=== PATIENT | female | born 1990 | race Caucasian/White ===

== ENCOUNTER 2018-10-22 09:21 | Inpatient (IN) | payer MEDICAID ==
[~2018-10-22 09:21] MED LIST: EPHEDrine SULFATE 50 MG/5 ML SYG
[2018-10-22] MEDS: LACTATED RINGER'S 1,000 ML IV ×2 (10:20→16:24)
[2018-10-22] MEDS ORDERED: AMPICILLIN 2 GM/NS (PMX) 100 ML (10:26)
[2018-10-22] MEDS ORDERED: CEFAZOLIN 2 GM/50 ML (PMX) 50 ML IVPB (10:30)
[2018-10-22] MEDS ORDERED: MISOPROSTOL 200 MCG TAB PR ×2 (10:30→16:30)
[2018-10-22] MEDS ORDERED: OXYTOCIN 30 UNITS/LR 500 ML IV ×3 (10:30→16:30)
[2018-10-22] MEDS ORDERED: METHYLERGONOVINE 0.2 MG INJ IM ×2 (10:30→16:30)
[2018-10-22] MEDS ORDERED: CARBOPROST 250 MCG INJ IM ×2 (10:30→16:30)
[2018-10-22 10:36] LABS: ADD MAN DIFF? NO
[2018-10-22 10:53] LABS: BASOPHILS % 0.3 % (0.0-2.0); EOSINOPHILS # 0.1 10^3/ul (0.0-0.5); EOSINOPHILS % 0.5 % (0.0-7.0); HEMATOCRIT 34.7 % (37.0-47.0); HEMOGLOBIN 11.4 g/dl (12.0-16.0); LYMPHOCYTES # 1.5 10^3/ul (0.8-2.9); LYMPHOCYTES % 14.8 % (15.0-51.0); MEAN CORPUSCULAR HEMOGLOBIN 27.1 pg (29.0-33.0); MEAN CORPUSCULAR HGB CONC 32.9 g/dl (32.0-37.0); MEAN CORPUSCULAR VOLUME 82.6 fl (82.0-101.0); MEAN PLATELET VOLUME 10.5 fl (7.4-10.4); MONOCYTE # 0.7 10^3/ul (0.3-0.9); MONOCYTES % 7.2 % (0.0-11.0); NEUTROPHIL # 7.8 10^3/ul (1.6-7.5); NEUTROPHILS % 76.4 % (39.0-77.0); PLATELET COUNT 234 10^3/UL (140-415); RED CELL DISTRIBUTION WIDTH 14.2 % (11.5-14.5)
[2018-10-22 10:53] LABS: WHITE BLOOD COUNT 10.2 10^3/ul (4.8-10.8)
[2018-10-22] MEDS: CITRIC ACID/NA CITRATE 30 ML CUP PO (11:02)
[2018-10-22 11:03] LABS: INR 0.91; PROTIME 12.4 Sec (11.9-14.9)
[2018-10-22 11:04] LABS: PARTIAL THROMBOPLASTIN TIME 28.5 Sec (23.0-35.0)
[2018-10-22] MEDS ORDERED: morphine SULFATE/PF (10 MG/10 ML) INJ (11:15)
[2018-10-22] MEDS: AMPICILLIN 2 GM/NS (PMX) 100 ML IVPB (11:23)
[2018-10-22] MEDS ORDERED: METOCLOPRAMIDE 10 MG INJ (11:25)
[2018-10-22] MEDS ORDERED: ONDANSETRON 4 MG INJ (11:25)
[2018-10-22] MEDS ORDERED: KETOROLAC 30 MG INJ (11:26)
[2018-10-22] MEDS ORDERED: ONDANSETRON 4 MG INJ IV ×2 (13:00→17:30)
[2018-10-22] MEDS ORDERED: NALOXONE (0.4 MG/ML) INJ IV ×2 (13:00→17:30)
[2018-10-22] MEDS ORDERED: LORAZEPAM 2 MG INJ IV (13:00)
[2018-10-22] MEDS ORDERED: morphine 2 MG INJ IV ×6 (13:00→17:30)
[2018-10-22] MEDS ORDERED: morphine (1 MG/ML) 10ML SYRINGE IV ×3 (13:00)
[2018-10-22] MEDS ORDERED: DIPHENHYDRAMINE 50 MG INJ IV ×3 (13:00→17:30)
[2018-10-22] MEDS: OXYTOCIN 30 UNITS/LR 500 ML IV (13:15)
[2018-10-22] MEDS: ONDANSETRON 4 MG INJ IV ×2 (15:03→20:06)
[2018-10-22] MEDS: KETOROLAC 30 MG INJ IV (15:04)
[2018-10-22 15:10] LABS: RAPID PLASMA REAGIN NONREACTIVE (NR)
[2018-10-22] MEDS ORDERED: ZOLPIDEM 5 MG TAB PO (16:30)
[2018-10-22] MEDS: IBUPROFEN 600 MG TAB PO (18:00)
[2018-10-22] MEDS: SENNA/DOCUSATE NA (8.6MG/50MG) TAB PO (21:00)
[2018-10-23] MEDS: LACTATED RINGER'S 1,000 ML IV ×2 (00:05→08:23)
[2018-10-23] MEDS: IBUPROFEN 600 MG TAB PO ×4 (06:00→17:44)
[2018-10-23] MEDS: KETOROLAC 30 MG INJ IV (06:48)
[2018-10-23 07:58] LABS: ADD MAN DIFF? NO
[2018-10-23 08:04] LABS: BASOPHILS % 0.2 % (0.0-2.0); EOSINOPHILS % 0.3 % (0.0-7.0); HEMATOCRIT 28.3 % (37.0-47.0); HEMOGLOBIN 9.3 g/dl (12.0-16.0); LYMPHOCYTES # 1.4 10^3/ul (0.8-2.9); MEAN CORPUSCULAR HEMOGLOBIN 27.3 pg (29.0-33.0); MEAN CORPUSCULAR HGB CONC 32.9 g/dl (32.0-37.0); MEAN PLATELET VOLUME 10.2 fl (7.4-10.4); MONOCYTE # 1.1 10^3/ul (0.3-0.9); MONOCYTES % 9.3 % (0.0-11.0); NEUTROPHIL # 8.9 10^3/ul (1.6-7.5); NEUTROPHILS % 77.5 % (39.0-77.0); PLATELET COUNT 193 10^3/UL (140-415); RED BLOOD COUNT 3.41 10^6/ul (4.20-5.40); RED CELL DISTRIBUTION WIDTH 14.4 % (11.5-14.5)
[2018-10-23 08:04] LABS: WHITE BLOOD COUNT 11.4 10^3/ul (4.8-10.8)
[2018-10-23] MEDS: SENNA/DOCUSATE NA (8.6MG/50MG) TAB PO ×2 (13:04→20:15)
[2018-10-23] MEDS: OXYCODONE/ACETAMINOPHEN (5/325) TAB PO ×2 (14:46→20:15)
[2018-10-24] MEDS: IBUPROFEN 600 MG TAB PO ×5 (00:45→23:31)
[2018-10-24] MEDS: SENNA/DOCUSATE NA (8.6MG/50MG) TAB PO ×2 (08:29→20:14)
[2018-10-24] MEDS: OXYCODONE/ACETAMINOPHEN (5/325) TAB PO ×3 (08:30→20:14)
[2018-10-25] MEDS: OXYCODONE/ACETAMINOPHEN (5/325) TAB PO (06:08)
[2018-10-25] MEDS: IBUPROFEN 600 MG TAB PO ×2 (06:08→11:56)
[2018-10-25] MEDS: DIPHTH/TET/ACEL PERTUSS (ADULT) 0.5 ML VIAL IM* (09:08)
[2018-10-25] MEDS: SENNA/DOCUSATE NA (8.6MG/50MG) TAB PO (09:15)
[2018-10-25] MEDS: LANOLIN HPA 1 PKT TOP (09:15)
== END 2018-10-25 13:30 | disposition home or self-care (01) | DRG 785 ==
LOC: OBT 09:21 → L-D 09:25 → OBT 10:05 → L-D 10:05 → PP1 16:08
PROVIDERS: Obstetrics & Gynecology
PROC: 10D00Z1 Extraction of Products of Conception, Low, Open Approach (ICD-10-PCS; principal; 2018-10-22)
PROC: 0UB70ZZ Excision of Bilateral Fallopian Tubes, Open Approach (ICD-10-PCS; 2018-10-22)
DX: O34.219 Maternal care for unspecified type scar from previous cesarean delivery (principal); O99.824 Streptococcus B carrier state complicating childbirth; Z3A.39 39 weeks gestation of pregnancy; Z37.0 Single live birth; Z30.2 Encounter for sterilization
CPT/HCPCS: 85025; 85610; 85730; 86592; 86850; 86900; 86901; 88302